=== PATIENT | male | born 2005 | race Caucasian/White ===

== ENCOUNTER 2023-01-14 00:33 | Emergency (ER) | payer SELFPAY ==
[~2023-01-14] VITALS: Ht 177.8 cm; Wt 101.4 kg
[2023-01-14 00:46] VITALS: TEMP 98.6; O2SAT 100
[2023-01-14 01:14] LABS: BASOPHILS % 0.5 % (0.0-2.0); EOSINOPHILS % 0.7 % (0.0-5.0); HEMATOCRIT. 41.5 % (42.0-52.0); HEMOGLOBIN. 14.7 g/dL (14.0-18.0); LYMPHOCYTES % 23.8 % (20.0-50.0); MEAN CORPUSCULAR HEMOGLOBIN 27.8 pg (28.0-32.0); MEAN CORPUSCULAR VOLUME 78.8 fL (80.0-94.0); MEAN PLATELET VOLUME 7.9 fl (7.4-10.4); MONOCYTES % 9.3 % (2.0-8.0); NEUTROPHILS % 65.7 % (40.0-76.0); PLATELET 228 x1000/uL (130-400); RED BLOOD CELL COUNT 5.27 mill/uL (4.7-6.1); RED CELL DISTRIBUTION WIDTH 13.6 % (11.6-14.6)
[2023-01-14 01:26] LABS: CHLORIDE 106 mEq/L (98-107)
[2023-01-14 01:50] LABS: CLARITY URINE CLEAR (CLEAR); COLOR URINE YELLOW (YELLOW); KETONES URINE NEGATIVE (NEGATIVE); LEUKOCYTE ESTERASE URINE NEGATIVE (NEGATIVE); NITRITE URINE NEGATIVE (NEGATIVE); OCCULT BLOOD URINE NEGATIVE (NEGATIVE); PH URINE 6.5 (4.5-8.0); PROTEIN URINE NEGATIVE (NEGATIVE); SPECIFIC GRAVITY URINE 1.027 (1.005-1.030)
[2023-01-14] MEDS ORDERED: IBUP-2028 MT (05:23)
[2023-01-14 05:39] VITALS: BP 124/65; PULSE 80; RESP 20
== END 2023-01-14 05:41 | disposition home or self-care (01) ==
LOC: ER 00:33
DX: R07.89 Other chest pain (principal); R06.02 Shortness of breath
CPT/HCPCS: 36415; 80053; 81003; 84484; 85025; 93005; 99284